=== PATIENT | female | born 1965 | race Caucasian/White ===

== ENCOUNTER 2017-11-30 12:50 | Day surgery (SDC) | payer OTHER ==
[2017-11-29 13:32] VITALS: BMI 29.8
[2017-11-30 13:31] LABS: INR 1.12 (0.82-1.09); PROTHROMBIN TIME (PATIENT) 12.6 SEC (9.7-13.0)
[2017-11-30 13:33] LABS: ACTIVATED PTT 27.3 SECONDS (26.9-34.4)
[2017-11-30] MEDS ORDERED: MIDAZOLAM HCL 2 MG/2 ML SINGLE DOSE VIAL ONE (14:14)
[2017-11-30] MEDS ORDERED: SUCCINYLCHOLINE CHLORIDE 200 MG/10 ML VIAL ONE (14:14)
[2017-11-30] MEDS ORDERED: PROPOFOL 20 ML ONE (14:15)
[2017-11-30] MEDS ORDERED: CLINDAMYCIN 600 MG PREMIX BAG IVPB ONE (15:02)
[2017-11-30] MEDS ORDERED: CLINDAMYCIN PHOSPHATE 600 MG/4 ML VIAL IVPB ONE (15:02)
[2017-11-30] MEDS ORDERED: ePHEDrine SULFATE 50 MG/1 ML AMPULE ONE (15:22)
[2017-11-30] MEDS ORDERED: oxyCODONE HCL 5 MG TABLET PO PRN (15:50)
[2017-11-30] MEDS ORDERED: ONDANSETRON 4 MG/2 ML VIAL IVPUSH PRN (15:50)
[2017-11-30] MEDS ORDERED: LACTATED RINGERS SOLUTION 1,000 ML IV SCH (16:00)
--- NOTE | 2017-11-30 16:12 | HP ---
History & Physical Update - History History: No Change - Physical Physical: No Change - Assessment Assessment: No Change - Plan Plan: No Change
--- NOTE | 2017-11-30 16:30 | OP ---
Operative Note - Note: Operative Date: 11/30/17 Pre-Operative Diagnosis: Postmenopausal bleeding. Uterine mass. Personal Hx breast malignancy Operation: Hysteroscopy, excision of uterine mass, D&C Findings: EUA= enlarged AV uterus with no pelvic or adnexal masses Hysteroscopy= right uterine mass ~2cm with solid and polypoid features near the fundus, thick uterine synechiae traversing the uterine cavity Post-Operative Diagnosis: Same as Pre-op Surgeon: Mitchell Retana Anesthesiologist/CPO: Rosales Gandara Anesthesia: General Specimens Removed: Uterine mass, uterine curettings Estimated Blood Loss (mls): 5 Blood Volume Replaced (mls): 0 Fluid Volume Replaced (mls): 600 Operative Report Dictated: Yes
[2017-11-30 18:21] VITALS: PULSE 71; TEMP 97.6
[2017-11-30 18:24] VITALS: BP 131/80
--- NOTE | 2017-11-30 19:39 | OP ---
DATE OF OPERATION: 11/30/2017 PREOPERATIVE DIAGNOSIS: Postmenopausal bleeding, uterine mass, personal history of breast malignancy. POSTOPERATIVE DIAGNOSIS: Postmenopausal bleeding, uterine mass, personal history of breast malignancy. PROCEDURE: Hysteroscopy, excision of the uterine mass, dilation and curettage. SURGEON: Casey Munoz M.D. CABLE MACHINE OPERATOR: None. ANESTHESIOLOGIST: Rosales Gandara M.D. ANESTHESIA: General. COMPLICATIONS: None. PATHOLOGY: Fragments of the excised uterine mass and uterine curettings. INTRAVENOUS FLUIDS: 600 mL. ESTIMATED BLOOD LOSS: 5 mL. FINDINGS: Examination under anesthesia revealed an anteverted, slightly enlarged uterus with no pelvic or adnexal masses. Hysteroscopy revealed an enlarged uterine cavity with the right uterine mass approximately 2 cm in size with solid and polypoid features located near the uterine fundus towards the right cornua. There were multiple thick uterine synechiae traversing the uterine cavity. DESCRIPTION OF PROCEDURE: The patient was met preoperatively. Risks, benefits, and alternatives of surgery were discussed in detail. All questions were answered. The patient was then brought to the OR with IV running. The patient was placed on the surgical table in the supine position. The general anesthesia was achieved without difficulty. The patient was then placed in a dorsal lithotomy position using adjustable Apollo stirrups. She was examined under anesthesia with the findings as described above. The timeout was then conducted as per standard protocol. The patient was then prepped and draped in the usual sterile fashion. A weighted speculum was introduced inside the vagina. The cervix was visualized and grasped with a single-toothed tenaculum. The cervical os was gently dilated to accommodate a size 21 Garcia dilator. A hysteroscope was then introduced through the cervix and into the uterine cavity. The uterine cavity was noted to be enlarged, and there were multiple thick uterine synechiae traversing the uterine cavity. Near the uterine fundus, there was a 2-cm mass with polypoid and solid features. The mass was located closer to the right uterine cornua. A trochlear resection device was then inserted through the hysteroscope and into the uterine cavity. The trochlear hysteroscope was then used to resect all of the uterine synechiae; once this was done, good access to the fundal uterine mass was assured. The trochlear resectoscope was then used to completely excise the uterine mass. Once this was done, the hysteroscope was removed. A sharp uterine curettage was performed, and the tissue was sent to pathology for evaluation. The hysteroscope was then once again introduced into the uterine cavity. No other lesions were noted. Good hemostasis was noted. All of the instruments were then removed from the patient. Sponge, lap, and instrument counts were correct. Once again, good hemostasis was assured. The patient was then returned to supine position. She was transferred to recovery room in stable condition and awake. CASEY MUNOZ M.D. [id number]
--- NOTE | 2017-12-02 10:31 | PATH ---
Surgical Pathology Report Patient Name: GISELLE AZAR [facility]. Rec. #: [id number] /Age/Gender: 1965 (Age: 52) / F Account: [id number] Location: [facility] SURGICAL Taken: 11/30/2017 Received: 12/01/2017 Reported: 12/02/2017 Physicians: Mitchell Retana M.D. Specimen(s) Received A: UTERINE MASS B: ENDOMETRIAL CURETTINGS Clinical History Uterine mass Final Diagnosis A. 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 NO ENDOMETRIAL HYPERPLASIA OR CARCINOMA IDENTIFIED. B. ENDOMETRIUM, CURETTING: DISORDERED PROLIFERATIVE ENDOMETRIUM WITH AREAS SUGGESTIVE OF BENIGN ENDOMETRIAL POLYP. NO ENDOMETRIAL HYPERPLASIA OR CARCINOMA IDENTIFIED. Comment: This case was discussed with Dr. Retana on 12/02/2017. Electronically Signed Nghia Carrasco M.D. Gross Description A. Received in formalin labelled "uterine mass" is a 2 x 1 x 0.3 cm aggregate of hearn tissue fragments. Totally submitted in one cassette. B. Received in formalin labelled "endometrial curetting." is a 1 cm in greatest dimension aggregate of hearn tissue. Totally submitted in one cassette. [facility]/12/01/2017 [facility]/12/01/2017
== END 2017-11-30 18:01 | disposition home or self-care (01) ==
LOC: JASU-SURG 12:50
PROVIDERS: ATTEND Obstetrics & Gynecology
PROC: 0UB98ZZ Excision of Uterus, Via Natural or Artificial Opening Endoscopic (ICD-10-PCS; 2017-11-30)
PROC: 0UDB7ZX Extraction of Endometrium, Via Natural or Artificial Opening, Diagnostic (ICD-10-PCS; principal; 2017-11-30 14:00)
PROC: 0UJD8ZZ Inspection of Uterus and Cervix, Via Natural or Artificial Opening Endoscopic (ICD-10-PCS; 2017-11-30 14:00)
DX: N95.0 Postmenopausal bleeding (principal); D26.9 Other benign neoplasm of uterus, unspecified; Z85.3 Personal history of malignant neoplasm of breast
CPT/HCPCS: 36415; 71046-TC-FY; 85610; 85730; 88305-TC; 94760